=== PATIENT | male | born 1965 | race Caucasian/White ===

== ENCOUNTER 2017-01-02 14:05 | Day surgery (SDC) | payer MEDICARE, BC ==
[~2017-01-02] VITALS: Ht 177.8 cm; Wt 82.7 kg
[2017-01-02 15:03] VITALS: BP 117/82; PULSE 102; TEMP 97.5
[2017-01-02] MEDS ORDERED: ASPIRIN 32325 MG/TAB PO (15:12)
[2017-01-02] MEDS ORDERED: SENOKOT8.6 MG PO (15:13)
[2017-01-02] MEDS ORDERED: NEURONTIN300 MG/CAP PO (15:14)
[2017-01-02] MEDS ORDERED: NEURONTIN100 MG/CAP PO (15:16)
[2017-01-02] MEDS ORDERED: SYNTHROID0.1 MG/TAB PO (15:17)
[2017-01-02] MEDS ORDERED: LIPITOR 40MG TA40 MG PO (15:18)
[2017-01-02 16:10] VITALS: BP 110/76; PULSE 86; TEMP 97.7
[2017-01-02 16:25] VITALS: BP 103/81; PULSE 80
[2017-01-02 16:45] VITALS: BP 101/79; PULSE 75
[2017-01-02 17:35] VITALS: BP 108/86; PULSE 85
== END 2017-01-02 17:00 | disposition home or self-care (01) ==
LOC: SDCO 14:05
DX: Z12.11 Encounter for screening for malignant neoplasm of colon (principal); E78.5 Hyperlipidemia, unspecified; E03.9 Hypothyroidism, unspecified; Z87.891 Personal history of nicotine dependence; Z82.49 Family history of ischemic heart disease and other diseases of the circulatory system; Z83.49 Family history of other endocrine, nutritional and metabolic diseases
CPT/HCPCS: OP; J2250; J2405; J3010; J7030